=== PATIENT | male | born 1970 | race Caucasian/White ===

== ENCOUNTER 2019-09-20 22:18 | Emergency (ER) | payer MEDICAID ==
[~2019-09-20] VITALS: Ht 177.8 cm; Wt 108.9 kg
--- NOTE | 2019-09-20 22:20 | NUR ---
AT BEDSIDE EXAMINING PT
[2019-09-20 22:21] VITALS: BP 138/80
[2019-09-20] MEDS ORDERED: HYDROcodone/APAP 5/325 MG 1 TAB TAB PO ONE (22:25)
[2019-09-20] MEDS ORDERED: KETOROLAC 30 MG/ML VIAL IM ONE (22:25)
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
--- NOTE | 2019-09-20 22:48 | NUR ---
XRAY AT BEDSIDE DOING PORTABLE XRAY
--- NOTE | 2019-09-20 23:08 | NUR ---
PHONED JUDITH MANNING FOR CASE # AND APRIL (DISPATCHER) STATED CASE # [id number]
--- NOTE | 2019-09-20 23:12 | NUR ---
INFORMED THAT PT STATES NO PAIN RELIEF FROM MEDICATON. NEW ORDERS NOTED AND CARRIED OUT.
[2019-09-20] MEDS ORDERED: MORPHINE SULFATE 4 MG/ML SYR IM ONE (23:15)
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
--- NOTE | 2019-09-21 00:09 | NUR ---
PLACED PT ON 2L N/C TO MAINTAIN O2 SAT >92%
[2019-09-21 01:06] VITALS: BP 138/80
--- NOTE | 2019-09-21 01:06 | NUR ---
DPatient discharged with v/s stable. Written and verbal after care instructions given and explained. Patient alert, oriented and verbalized understanding of instructions. Ambulatory with steady gait. All questions addressed prior to discharge. ID band removed. Patient advised to follow up with PMD. Rx of MOTRIN/NORCO given. Patient educated on indication of medication including possible reaction and side effects. Opportunity to ask questions provided and answered. OFFERED PT HOMELESS PACKET AND FOOD BUT PT REFUSED, PT STATED HE IS NOT HOMELESS. OFFERED PT BUS PASS,WHICH PT ACCEPTED.
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
== END 2019-09-21 01:06 | disposition home or self-care (01) ==
LOC: MED 22:18
DX: S52.091A Other fracture of upper end of right ulna, initial encounter for closed fracture (principal); E11.9 Type 2 diabetes mellitus without complications; Y04.2XXA Assault by strike against or bumped into by another person, initial encounter; Y93.89 Activity, other specified; Y92.89 Other specified places as the place of occurrence of the external cause; Y99.8 Other external cause status
CPT/HCPCS: 29105; 73070; 73090; 90471; 90715; 96372; 99284; J1885; J2270